=== PATIENT | male | born 1965 | race Caucasian/White ===

== ENCOUNTER 2020-04-10 08:01 | Outpatient (CLI) | payer BC, SELFPAY ==
[2020-04-10 08:18] LABS: Hematocrit 43.4 % (40.0-54.0); Hemoglobin 14.6 g/dL (14.0-18.0); Mean Corpuscular HGB Conc 33.6 g/dL (32.0-36.0); Mean Corpuscular Hemoglobin 30.9 pg (27.0-31.0); Mean Corpuscular Volume 91.8 fL (78.0-102.0); Mean Platelet Volume 11.3 fl (8.7-11.0); Platelet Count Result 229 K/mm3 (150-420); Red Blood Count 4.73 M/mm3 (4.70-6.10); Red Cell Distribution Width 12.2 % (11.6-14.4); White Blood Count 9.2 K/mm3 (4.8-10.8)
[2020-04-10 08:43] LABS: Hemoglobin A1C 6.3 % (<5.7)
[2020-04-10 09:24] LABS: Alanine Aminotransferase 24 U/L (16-63); Albumin Level 3.7 g/dL (3.4-5.0); Alkaline Phosphatase 99 U/L (46-116); Aspartate Amino Transferase 17 U/L (15-37); Bilirubin,Total 0.4 mg/dL (0.00-1.00); Blood Urea Nitrogen 21 mg/dL (7-18); Calcium 9.3 mg/dL (8.5-10.1); Carbon Dioxide 34 mmol/L (21-32); Chloride 99 mmol/L (98-108); Cholesterol 162 mg/dL (0-200); Estimated Glomerular Filt Rate > 60; Glucose 103 mg/dL (70-99); HDL Direct 41 mg/dL (40-60); LDL Cholesterol Calculated 86 mg/dL (<130); Osmolality Calculated 289 mOsm/kg (285-295); Sodium 138 mmol/L (136-145); Total Protein 7.1 g/dL (6.4-8.2); Triglycerides 177 mg/dL (0-150)
== END 2020-04-10 08:02 | disposition home or self-care (01) ==
PROVIDERS: PCP Family Medicine; Visit Provider Family Medicine
DX: I10 Essential (primary) hypertension (principal)
CPT/HCPCS: 36415; 80053; 80061; 83036; 85027

== ENCOUNTER 2020-04-20 09:30 | Outpatient (CLI) | payer BC, SELFPAY ==
--- NOTE | ~2020-04-20 | XR_ITS ---
EXAMINATION: XR shoulder RT min 2V DATE: 04/20/2020 09:54 INDICATION: Right shoulder pain. TECHNIQUE: 4 views of right shoulder were obtained. COMPARISON: Right shoulder radiograph 03/15/2019 FINDINGS: Bone alignment is normal. No fracture. There is moderate osteoarthritis of glenohumeral deana nt and acromioclavicular joint. IMPRESSION: 1. Stable polyarticular osteoarthritis. Reviewed, dictated and finalized at location A.
--- NOTE | ~2020-04-20 | XR_ITS ---
EXAMINATION: XR shoulder LT min 2V DATE: 04/20/2020 09:54 INDICATION: Left shoulder pain. TECHNIQUE: 4 views of left shoulder were obtained. COMPARISON: Left shoulder radiograph 03/15/2019 FINDINGS: Bone alignment is normal. No fracture. There is moderate osteoarthritis of glenohumeral deana nt and acromioclavicular joint. IMPRESSION: 1. Stable polyarticular osteoarthritis. Reviewed, dictated and finalized at location A.
== END 2020-04-20 09:31 | disposition home or self-care (01) ==
PROVIDERS: PCP Nurse Practitioner Family; Visit Provider Nurse Practitioner Family
DX: M25.519 Pain in unspecified shoulder (principal)
CPT/HCPCS: 73030

== ENCOUNTER 2020-09-18 13:10 | Outpatient (CLI) | payer BC, SELFPAY ==
[2020-09-18 23:58] LABS: SARS-CoV-2 RNA PCR Negative
== END 2020-09-18 13:11 | disposition home or self-care (01) ==
LOC: CHSLAB 13:13
PROVIDERS: PCP Nurse Practitioner Family; Visit Provider Nurse Practitioner Family
DX: Z20.828 Contact with and (suspected) exposure to other viral communicable diseases (principal)
CPT/HCPCS: 87635; C9803; U0003

== ENCOUNTER 2021-01-12 08:37 | Outpatient (CLI) | payer BC, SELFPAY ==
--- NOTE | ~2021-01-12 | XR_ITS ---
EXAMINATION: XR chest 2V DATE: 01/12/2021 08:56 INDICATION: Shortness of breath TECHNIQUE: PA and lateral views of the chest were obtained. COMPARISON: Chest radiograph dated 07/29/2011 FINDINGS: The lungs remain clear with no focal airspace opacities, pulmonary edema, pleural effusion or pneumot horax. The cardiomediastinal silhouette is normal. Mild thoracic spondylosis. IMPRESSION: 1. No acute cardiopulmonary disease. Reviewed, dictated and finalized at location A.
== END 2021-01-12 08:38 | disposition home or self-care (01) ==
LOC: CHSIMG 08:39
PROVIDERS: PCP Nurse Practitioner Family; Visit Provider Nurse Practitioner Family
DX: R06.02 Shortness of breath (principal)
CPT/HCPCS: 71046

== ENCOUNTER 2021-08-09 18:33 | Emergency (ER) | payer BC, SELFPAY ==
[2021-08-09 18:48] VITALS: BP 162/64; PULSE 60; RESP 16; TEMP 36.1; O2SAT 96
--- NOTE | 2021-08-09 18:53 | ED.SKABFB ---
HPI - Skin/Abscess/Foreign Bdy General Chief complaint: Skin/Abscess/Foreign Body Stated complaint: infected finger on L hand Source: patient Mode of arrival: ambulatory Limitations: no limitations History of Present Illness HPI narrative: this is a 56-year-old gentleman that presents with a red warm area on his left pinky finger is nontender has good range of motion no known injuries looks like there is a central punctate lesion from possibly an insect bite with surrounding area of erythema and inflammation. There is currently no fever chills no shortness of breath no drainage from the site. Tetanus up to date: yes Location: LUE Severity: mild Related Data Allergies Allergy/AdvReac Type Severity Reaction Status Date / Time No Known Allergies Allergy Verified 01/12/21 07:36 Review of Systems Review of Systems: All systems reviewed & are unremarkable except as noted in HPI and below PMFSH Past Medical History Medical History HTN (hypertension) Hyperlipidemia Left foot pain Obesity, Class III, BMI 40-49.9 (morbid obesity) Osteoarthritis Overweight Prediabetes Primary osteoarthritis of left shoulder Primary osteoarthritis of right shoulder Sleep apnea with use of continuous positive airway pressure (CPAP) Surgical History Surgical History History of left shoulder replacement (~2015) Family History Family History Mother CHF (congestive heart failure) Sibling CHF (congestive heart failure) Social History Social History Smoking status: Never smoker Alcohol intake: never Substance use: never Substance use type: does not use Gender identity (if verbalized by the patient): Male Exam Const: General: no acute distress Orientation/consciousness: patient oriented x3 HENMT: Head: normal to inspection Eyes: Conjunctivae: conjunctivae normal Pupils: Equal, round and reactive pupils present Neck: Neck: normal visual inspection, no lymphadenopathy and no meningeal signs Chest: Chest palpation & inspection: normal inspection of the chest Resp: Effort & Inspection: normal respiratory effort Auscultation: clear to auscultation bilaterally Cardio: Rate: regular rate Rhythm: regular rhythm GI: GI Palp: Yes Soft to palpation Urinary Catheter: Urinary Catheter: patent and draining Back/Spine/Pelvis: Back: no CVA tenderness Skin: Other: Area of erythema on his left 5th finger with warmth and nontender with palpation Neuro: General: patient oriented x3 and moves all extremities Course Course Emergency Course: patient received a g of IM ceftriaxone advised to take Tylenol or Motrin and continue antibiotics by mouth there were sent to his pharmacy if symptoms persist or worsen should follow-up with his primary care physician. Vital Signs Vital signs: Vital Signs Temperature 36.1 C L 08/09/21 18:48 Pulse Rate 60 08/09/21 18:48 Respiratory Rate 16 08/09/21 18:48 Blood Pressure 162/64 H 08/09/21 18:48 Pulse Oximetry 96 08/09/21 18:48 Temperature 36.1 C L 08/09/21 18:48 Pulse Rate 60 08/09/21 18:48 Respiratory Rate 16 08/09/21 18:48 Blood Pressure 162/64 H 08/09/21 18:48 Pulse Oximetry 96 08/09/21 18:48 Critical Care Time Critical Care Time Critical Care Time: No Discharge Plan Discharge Clinical Impression: Cellulitis Patient Disposition: Home, Self-Care Condition: Stable Instructions: Antibiotic Form, Cellulitis (ED) Additional Instructions: Take medicine as prescribed, can use Tylenol or Motrin for pain or inflammation and follow-up primary care physician if symptoms persist or worsen. Prescriptions: New amoxicillin-pot clavulanate [Augmentin] 875-125 mg tablet 1 tablet PO Q12H Qty: 20 RF: 0 No Action albu
[2021-08-09] MEDS: cefTRIAXone 1 GM VIAL IM (19:05)
[2021-08-09] MEDS: LIDOCAINE HCL 1% LOCAL INJ 20 ML VIAL (19:05)
== END 2021-08-09 19:22 | disposition home or self-care (01) ==
PROVIDERS: Emergency Provider Emergency Medicine; PCP Nurse Practitioner Family
DX: L03.90 Cellulitis, unspecified (principal)
CPT/HCPCS: 96372; 99283; J0696

== ENCOUNTER 2021-10-24 17:00 | Outpatient (CLI) | payer OTHER, SELFPAY ==
--- NOTE | ~2021-10-24 | XR_ITS ---
EXAMINATION: XR finger 5th LT min 2V INDICATION: Left fifth finger swelling TECHNIQUE: Four views of the left fifth finger are obtained. COMPARISON: None available FINDINGS: There is diffuse soft tissue swelling of the left fifth finger. No fracture is identified. Moderate osteoarthritis is noted at the proximal interphalangeal joint and mild osteoarthritis is not ed at the distal interphalangeal joint. IMPRESSION: 1. Soft tissue swelling and osteoarthritis of the fifth finger without acute osseous abnormality iden tified. Reviewed, dictated and finalized at location F. IT OPERATIONS PROCESSOR IMPRESSION: 1. Soft tissue swelling and osteoarthritis of the fifth finger without acute os seous abnormality identified.
[2021-10-24 18:13] LABS: Basophils Absolute Auto 0.06 K/mm3 (0.00-0.10); Basophils Percent Auto 0.5 % (0.0-1.0); Eosinophils Absolute Auto 0.28 K/mm3 (0.02-0.50); Eosinophils Percent Auto 2.5 % (1.0-6.0); Hematocrit 44.2 % (40.0-54.0); Hemoglobin 14.6 g/dL (14.0-18.0); Immature Granulocyte Absolute 0.08 K/mm3 (0.00-0.00); Immature Granulocyte Percent A 0.7 % (0.0-0.0); Lymphocytes Absolute Auto 2.62 K/mm3 (1.10-4.50); Lymphocytes Percent Auto 23.7 % (18.0-42.0); Mean Corpuscular Volume 90.9 fL (78.0-102.0); Mean Platelet Volume 10.9 fl (8.7-11.0); Monocytes Absolute Auto 0.95 K/mm3 (0.10-0.90); Monocytes Percent Auto 8.6 % (2.0-11.0); Neutrophils Absolute Auto 7.1 K/mm3 (1.7-7.2); Platelet Count Result 230 K/mm3 (150-420); Red Blood Count 4.86 M/mm3 (4.70-6.10); Red Cell Distribution Width 12.6 % (11.6-14.4); White Blood Count 11.1 K/mm3 (4.8-10.8)
[2021-10-24 18:43] LABS: Alanine Aminotransferase 38 U/L (16-63); Albumin Level 3.9 g/dL (3.4-5.0); Alkaline Phosphatase 91 U/L (46-116); Anion Gap 9 mmol/L (8-16); Aspartate Amino Transferase 21 U/L (15-37); Bilirubin,Total 0.5 mg/dL (0.00-1.00); Blood Urea Nitrogen 23 mg/dL (7-18); Calcium 9.4 mg/dL (8.5-10.1); Carbon Dioxide 30 mmol/L (21-32); Chloride 102 mmol/L (98-108); Cholesterol 191 mg/dL (0-200); Estimated Glomerular Filt Rate > 60; Glucose 96 mg/dL (70-99); HDL Direct 46 mg/dL (40-60); LDL Cholesterol Calculated 113 mg/dL (<130); Osmolality Calculated 295 mOsm/kg (285-295); Potassium 3.8 mmol/L (3.5-5.1); Sodium 141 mmol/L (136-145); Triglycerides 158 mg/dL (0-150); Uric Acid 8.8 mg/dL (3.5-7.2)
== END 2021-10-24 17:01 | disposition home or self-care (01) ==
LOC: CHSLAB 17:04
PROVIDERS: PCP Nurse Practitioner Family; Visit Provider Nurse Practitioner Family
DX: M79.89 Other specified soft tissue disorders (principal); I10 Essential (primary) hypertension; Z00.00 Encounter for general adult medical examination without abnormal findings; E78.5 Hyperlipidemia, unspecified
CPT/HCPCS: 36415; 73140; 80053; 80061; 84550; 85025

== ENCOUNTER 2022-04-23 15:12 | Outpatient (CLI) | payer OTHER, SELFPAY ==
--- NOTE | ~2022-04-23 | XR_ITS ---
XR shoulder RT min 2V 04/23/2022 15:44 Indication: Chronic right shoulder pain Procedure: 4 views right shoulder Comparison: 04/20/2020 Findings: There is moderate polyarticular osteoarthritis. No fracture or traumatic malalignment. No s oft tissue abnormality. No foreign bodies. Impression: 1: Moderate polyarticular osteoarthritis of the right shoulder. Reviewed, dictated and finalized at location A. Impression: 1: Moderate polyarticular osteoarthritis of the right shoulder.
--- NOTE | ~2022-04-23 | XR_ITS ---
XR shoulder LT min 2V 04/23/2022 15:44 Indication: Left shoulder pain for years Procedure: 4 views left shoulder Comparison: 04/20/2020 Findings: There is polyarticular osteoarthritis of the left shoulder, moderate at the glenohumeral ruth int. No fracture or subluxation. No significant soft tissue abnormality. No foreign bodies. Impression: 1: Moderate polyarticular osteoarthritis of the left shoulder. Reviewed, dictated and finalized at location A. Impression: 1: Moderate polyarticular osteoarthritis of the left shoulder.
== END 2022-04-23 15:13 | disposition home or self-care (01) ==
LOC: CHSIMG 15:14
PROVIDERS: PCP Nurse Practitioner Family; Visit Provider Nurse Practitioner Family
DX: M19.012 Primary osteoarthritis, left shoulder (principal); M25.511 Pain in right shoulder
CPT/HCPCS: 73030

== ENCOUNTER 2022-04-29 11:48 | Outpatient (CLI) | payer OTHER, SELFPAY ==
[2022-04-29 11:59] LABS: Basophils Absolute Auto 0.05 K/mm3 (0.00-0.10); Basophils Percent Auto 0.5 % (0.0-1.0); Eosinophils Absolute Auto 0.26 K/mm3 (0.02-0.50); Eosinophils Percent Auto 2.6 % (1.0-6.0); Hematocrit 43.4 % (40.0-54.0); Hemoglobin 14.7 g/dL (14.0-18.0); Immature Granulocyte Absolute 0.11 K/mm3 (0.00-0.00); Immature Granulocyte Percent A 1.1 % (0.0-0.0); Lymphocytes Absolute Auto 2.18 K/mm3 (1.10-4.50); Lymphocytes Percent Auto 22.1 % (18.0-42.0); Mean Corpuscular HGB Conc 33.9 g/dL (32.0-36.0); Mean Corpuscular Hemoglobin 30.2 pg (27.0-31.0); Mean Corpuscular Volume 89.3 fL (78.0-102.0); Mean Platelet Volume 10.9 fl (8.7-11.0); Monocytes Absolute Auto 1.07 K/mm3 (0.10-0.90); Monocytes Percent Auto 10.9 % (2.0-11.0); Neutrophils Absolute Auto 6.2 K/mm3 (1.7-7.2); Neutrophils Percent Auto 62.8 % (50.0-70.0); Platelet Count Result 229 K/mm3 (150-420); Red Blood Count 4.86 M/mm3 (4.70-6.10); Red Cell Distribution Width 12.5 % (11.6-14.4); White Blood Count 9.9 K/mm3 (4.8-10.8)
[2022-04-29 12:39] LABS: Alanine Aminotransferase 47 U/L (16-63); Albumin Level 3.6 g/dL (3.4-5.0); Alkaline Phosphatase 114 U/L (46-116); Anion Gap 6 mmol/L (8-16); Aspartate Amino Transferase 26 U/L (15-37); Bilirubin,Total 0.3 mg/dL (0.00-1.00); Blood Urea Nitrogen 21 mg/dL (7-18); Calcium 9.3 mg/dL (8.5-10.1); Carbon Dioxide 29 mmol/L (21-32); Chloride 104 mmol/L (98-108); Cholesterol 182 mg/dL (0-200); Estimated Glomerular Filt Rate > 60; Glucose 107 mg/dL (70-99); HDL Direct 41 mg/dL (40-60); Hemoglobin A1C 6.3 % (<5.7); LDL Cholesterol Calculated 56 mg/dL (<130); Osmolality Calculated 291 mOsm/kg (285-295); Sodium 139 mmol/L (136-145); Triglycerides 425 mg/dL (0-150)
[2022-04-29 12:42] LABS: LDL Cholesterol Direct 107 mg/dL (0-130)
== END 2022-04-29 11:49 | disposition home or self-care (01) ==
LOC: CHSLAB 11:50
PROVIDERS: PCP Family Medicine; Visit Provider Nurse Practitioner Family
DX: I10 Essential (primary) hypertension (principal); R73.03 Prediabetes; E78.5 Hyperlipidemia, unspecified
CPT/HCPCS: 36415; 80053; 80061; 83036; 83721; 85025

== ENCOUNTER 2022-05-17 09:27 | Outpatient (CLI) | payer OTHER, SELFPAY ==
[2022-05-17 10:13] LABS: SARS-CoV-2 RNA PCR Positive (Negative)
== END 2022-05-17 09:28 | disposition home or self-care (01) ==
LOC: CHSLAB 09:30
PROVIDERS: PCP Family Medicine; Visit Provider Nurse Practitioner Family
DX: U07.1 COVID-19 (principal)
CPT/HCPCS: C9803; U0003; U0005

== ENCOUNTER 2022-05-24 08:53 | Outpatient (CLI) | payer OTHER, SELFPAY ==
[2022-05-24 09:16] LABS: SARS-CoV-2 Ag Negative (Negative)
== END 2022-05-24 08:54 | disposition home or self-care (01) ==
LOC: CHSLAB 08:56
PROVIDERS: PCP Nurse Practitioner Family; Visit Provider Nurse Practitioner Family
DX: Z20.822 Contact with and (suspected) exposure to COVID-19 (principal)
CPT/HCPCS: 87426; C9803

== ENCOUNTER 2022-12-17 11:15 | Outpatient (CLI) | payer OTHER, SELFPAY ==
--- NOTE | ~2022-12-17 | XR_ITS ---
EXAMINATION: XR knee LT 3V DATE: 12/17/2022 11:38 INDICATION: 3 days of anterior left knee pain TECHNIQUE: Anteroposterior, sunrise and crosstable lateral views of the left knee were obtained COMPARISON: None. FINDINGS: Alignment is normal. No fracture. Joint spaces appear normal on nonweightbearing imaging. No joint e ffusion/layering lipohemarthrosis. Soft tissues are unremarkable. IMPRESSION: 1. Negative left knee radiographs. Reviewed, dictated and finalized at location A. T OF SALE ASSOCIATE
== END 2022-12-17 11:16 | disposition home or self-care (01) ==
LOC: CHSIMG 11:17
PROVIDERS: PCP Nurse Practitioner Family; Visit Provider Nurse Practitioner Family
DX: M25.562 Pain in left knee (principal)
CPT/HCPCS: 73562

== ENCOUNTER 2022-12-24 15:58 | Outpatient (RCR) | payer OTHER, SELFPAY ==
--- NOTE | 2022-12-24 16:49 | PTOPEVAL1 ---
Assessment and note entered by Zeus King Evaluation Information Assessment Status Evaluation Diagnosis left knee pain Onset 12/15/22 Subjective Information Pt. reports that he experienced initial knee pain around 12/15/22. He recalls no specific incident except for some pain getting off the couch. He reports that he did recieve a cortisone injection 1 week ago and pain has reduced. He reports that he avoids any stairs, squatting and kneeling, therefore pain has been minimal. He reports when pain is present is located on the inside of the left knee. He reports that pain is most notable when he is upright. He was using a cane but is no longer using an AD. He states that his goal is to improve his knee stability and reduce pain. Reported Pain Level Pain Score 0: Self Report Assessment PT Clinical Summary Pt. is a 57 year old male who enters the clinic with left knee pain. He currently presents with impaired strength, impaired ROM, pain and impaired gait. Continued skilled PT is indicated in order to improve these areas to allow the pt. to achieve improved comfort with all standing activities. Plan of Care Interventions Electrical Stimulation,Gait Training,Hot Pack/Cold Pack,Manual Therapy,Neuro Re-education,Patient/ Caregiver Educati,Therapeutic Activities, Therapeutic Exercise PT Services Indicated Yes Treatment Frequency and 2x/week x 6 visits Duration These treatments will address the objective and functional deficits as defined above. The patient will be advanced safely and appropriately in order for the patient to progress towards his/her prior level of function. Additional exercises will be introduced and as well as a comprehensive home exercise program upon discharge, if needed, ?to ensure carryover of functional gains achieved in the clinic. This treatment plan has been reviewed and agreement upon by the patient.
--- NOTE | 2023-01-10 15:43 | PTOPDC ---
Assessment and note entered by JT File, PT Evaluation Information Assessment Status Discharge Diagnosis left knee pain Onset 12/15/22 Subjective Information patient reports getting up from chair or truck causes severe increased pain. he reports he is still working and is not able to use his cane at work. he reports his pain has been severe all week . Reported Pain Level Pain Score 9: Self Report Assessment PT Clinical Summary mr. aguirre presents to skilled PT for his 6th skilled therapy visit. as of this date, he presents with worse rom, increased pain, and positive medial mcmurrays/medial jt line pain. he would beenfit from an MRI to rule out meniscus tear/other soft tissue damage. he will DC skilled PT this date and plan to return to MD for follow up for MRI and potential surgery. Plan of Care PT Services Indicated Yes
== END 2023-01-10 16:06 | disposition home or self-care (01) ==
LOC: CHSPT 15:58
PROVIDERS: PCP Nurse Practitioner Family; Visit Provider Nurse Practitioner Family
DX: M25.562 Pain in left knee (principal)
CPT/HCPCS: 97014; 97110; 97161; G0283

== ENCOUNTER 2023-01-17 08:35 | Outpatient (CLI) | payer OTHER, SELFPAY ==
[2023-01-17 08:50] LABS: Hematocrit 39.7 % (40.0-54.0); Mean Corpuscular HGB Conc 32.7 g/dL (32.0-36.0); Mean Corpuscular Hemoglobin 29.4 pg (27.0-31.0); Mean Corpuscular Volume 89.8 fL (78.0-102.0); Mean Platelet Volume 10.5 fl (8.7-11.0); Platelet Count Result 219 K/mm3 (150-420); Red Blood Count 4.42 M/mm3 (4.70-6.10); Red Cell Distribution Width 13.7 % (11.6-14.4); White Blood Count 7.7 K/mm3 (4.8-10.8)
[2023-01-17 09:19] LABS: Alanine Aminotransferase 31 U/L (16-63); Albumin Level 3.8 g/dL (3.4-5.0); Alkaline Phosphatase 96 U/L (46-116); Anion Gap 7 mmol/L (8-16); Aspartate Amino Transferase 18 U/L (15-37); Bilirubin,Total 0.7 mg/dL (0.00-1.00); Blood Urea Nitrogen 22 mg/dL (7-18); Calcium 9.6 mg/dL (8.5-10.1); Carbon Dioxide 34 mmol/L (21-32); Chloride 102 mmol/L (98-108); Cholesterol 173 mg/dL (0-200); Estimated Glomerular Filt Rate > 60; Glucose 113 mg/dL (70-99); HDL Direct 41 mg/dL (40-60); LDL Cholesterol Calculated 95 mg/dL (<130); Osmolality Calculated 300 mOsm/kg (285-295); Potassium 4.3 mmol/L (3.5-5.1); Sodium 143 mmol/L (136-145); Total Protein 7.3 g/dL (6.4-8.2); Triglycerides 187 mg/dL (0-150); Uric Acid 8.7 mg/dL (3.5-7.2)
[2023-01-17 17:08] LABS: Hemoglobin A1C 6.4 % (<5.7)
== END 2023-01-17 08:36 | disposition home or self-care (01) ==
LOC: CHSLAB 08:38
PROVIDERS: PCP Nurse Practitioner Family; Visit Provider Nurse Practitioner Family
DX: E66.3 Overweight (principal); E66.01 Morbid (severe) obesity due to excess calories
CPT/HCPCS: 36415; 80053; 80061; 83036; 84550; 85027

== ENCOUNTER 2023-02-14 08:09 | Outpatient (CLI) | payer OTHER, SELFPAY ==
--- NOTE | 2023-03-06 15:31 | WPDSLEEPSTUD ---
Sleep Study Date of Study: 02/14/23 Ordering Provider: Marcy Hay APRN Interpreting Physician: Oma Clay MD Sleep Study Type: Split Polysomnogram Height: 1.75 m Weight: 142.882 kg Body Mass Index: 46.5 Neck Circumference (inches): 21 [place]: 6 Reason for Sleep Study Obstructive sleep apnea, difficulty tolerating CPAP. He is using CPAP 12 cm now. ? Sleep History Michele Le is a 57-year-old male with history of hypertension, hyperlipidemia, prediabetes, and obstructive sleep apnea who presents for an in-lab split study due to difficulty tolerating CPAP. He occasionally awakens from sleep short of breath. He does not wake at night with heartburn, belching or cough.? He occasionally snores and snores loudly enough that others complain. He rarely has trouble sleeping when he has a cold. He rarely wakes up gasping for breath during the night. He rarely has breathing problems at night. He never sweats excessively at night. He rarely notices his heart pounding or beating irregularly during the night. He never falls asleep during the day. He rarely falls asleep involuntarily and rarely falls asleep while driving. He never experiences loss of muscle tone with strong emotion. He never feels paralyzed on waking or falling asleep. He never experiences vivid dreams upon waking or falling asleep. He does not feel afraid of going to sleep. He does not have nightmares. He rarely recalls his dreams. He occasionally has thoughts racing through his mind. He rarely feels sad or depressed. He rarely feels anxiety or worry about things. He does not notice parts of his body jerk. He occasionally kicks during the night. He never feels crawling or aching feelings in his legs and never feels leg pain at night. He rarely grinds his teeth during sleep and never has morning jaw pain. He rarely feels bothered by pain during the day and is rarely awakened by pain during the night. He does not wake up feeling stiff, sore, or achy in the morning. Normal bedtime is around 8:30 pm on the weekdays and 9:30 pm on the weekends, usually falling asleep within 20 minutes. He typically gets about 6 or 7 hours of sleep per night. His wake up time is around 4 am on the weekdays and 6 am on the weekends. He typically wakes up around two times per night, awake for about 10 minutes or so and uses the restroom. He watches TV before falling asleep. He takes naps in the afternoon or evening and feels refreshed after a short 10 to 15 minute nap. Habits:? Never smoked tobacco. Caffeine use is 16 oz per day. No alcohol or recreational substances. ? PMFSH Past Medical History Medical History HTN (hypertension) Hyperlipidemia Left foot pain Obesity, Class III, BMI 40-49.9 (morbid obesity) Osteoarthritis Overweight Prediabetes Primary osteoarthritis of left shoulder Primary osteoarthritis of right shoulder Sleep apnea with use of continuous positive airway pressure (CPAP) Surgical History Surgical History History of left shoulder replacement (~2015) Family History Family History Mother CHF (congestive heart failure) Heart disease Sibling CHF (congestive heart failure) Grandparent Heart disease Social History Social History Smoking status: Never smoker Alcohol intake: never Substance use: never Substance use type: does not use Living arrangements: with family Occupation/Education: occupation 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
[2023-03-06 15:58] VITALS: BMI 46.5
== END 2023-02-15 08:20 | disposition home or self-care (01) ==
LOC: ANHCSM 08:09
PROVIDERS: PCP Nurse Practitioner Family; Visit Provider Nurse Practitioner Family
DX: G47.30 Sleep apnea, unspecified (principal); G47.33 Obstructive sleep apnea (adult) (pediatric)
CPT/HCPCS: 95811

== ENCOUNTER 2023-06-21 09:15 | Outpatient (CLI) | payer OTHER, SELFPAY ==
[2023-06-21 09:47] LABS: Basophils Absolute Auto 0.05 K/mm3 (0.00-0.10); Basophils Percent Auto 0.8 % (0.0-1.0); Eosinophils Absolute Auto 0.17 K/mm3 (0.02-0.50); Eosinophils Percent Auto 2.9 % (1.0-6.0); Hematocrit 44.4 % (40.0-54.0); Immature Granulocyte Absolute 0.04 K/mm3 (0.00-0.00); Immature Granulocyte Percent A 0.7 % (0.0-0.0); Lymphocytes Absolute Auto 1.99 K/mm3 (1.10-4.50); Lymphocytes Percent Auto 33.4 % (18.0-42.0); Mean Corpuscular HGB Conc 33.8 g/dL (32.0-36.0); Mean Corpuscular Volume 91.7 fL (78.0-102.0); Mean Platelet Volume 11.2 fl (8.7-11.0); Monocytes Absolute Auto 0.67 K/mm3 (0.10-0.90); Monocytes Percent Auto 11.3 % (2.0-11.0); Neutrophils Percent Auto 50.9 % (50.0-70.0); Platelet Count Result 180 K/mm3 (150-420); Red Blood Count 4.84 M/mm3 (4.70-6.10); Red Cell Distribution Width 12.4 % (11.6-14.4)
[2023-06-21 10:32] LABS: Hemoglobin A1C 6.3 % (<5.7)
[2023-06-21 10:57] LABS: Alanine Aminotransferase 38 U/L (16-63); Albumin Level 4.1 g/dL (3.4-5.0); Alkaline Phosphatase 90 U/L (46-116); Anion Gap 6 mmol/L (8-16); Aspartate Amino Transferase 21 U/L (15-37); Bilirubin,Total 0.7 mg/dL (0.00-1.00); Blood Urea Nitrogen 22 mg/dL (7-18); Calcium 9.5 mg/dL (8.5-10.1); Carbon Dioxide 31 mmol/L (21-32); Chloride 104 mmol/L (98-108); Cholesterol 188 mg/dL (0-200); Estimated Glomerular Filt Rate > 60; Glucose 100 mg/dL (70-99); HDL Direct 42 mg/dL (40-60); LDL Cholesterol Calculated 108 mg/dL (<130); Osmolality Calculated 295 mOsm/kg (285-295); Potassium 4.2 mmol/L (3.5-5.1); Sodium 141 mmol/L (136-145); Total Protein 7.3 g/dL (6.4-8.2); Triglycerides 189 mg/dL (0-150); Uric Acid 9.3 mg/dL (3.5-7.2)
== END 2023-06-21 09:16 | disposition home or self-care (01) ==
LOC: CHSLAB 09:16
PROVIDERS: PCP Nurse Practitioner Family; Visit Provider Nurse Practitioner Family
DX: E11.9 Type 2 diabetes mellitus without complications (principal); E78.5 Hyperlipidemia, unspecified; I10 Essential (primary) hypertension; R79.81 Abnormal blood-gas level
CPT/HCPCS: 36415; 80053; 80061; 83036; 84550; 85025

== ENCOUNTER 2023-08-16 13:45 | Emergency (ER) | payer OTHER, SELFPAY ==
--- NOTE | ~2023-08-16 | XR_ITS ---
EXAMINATION: XR chest 1V portable DATE: 08/16/2023 14:18 INDICATION: Shortness of breath TECHNIQUE: frontal view of the chest was obtained. COMPARISON: Chest radiograph dated 01/12/2021 FINDINGS: The lungs remain clear with no focal airspace opacities, pulmonary edema, pleural effusion or pneumot horax. The cardiomediastinal silhouette is normal. Moderate bilateral acromioclavicular osteoarthriti s. IMPRESSION: 1. No acute cardiopulmonary disease. Reviewed, dictated and finalized at location A.
[2023-08-16 13:45] VITALS: BP 195/81; PULSE 80; RESP 18; TEMP 36.3; O2SAT 99
[2023-08-16 14:00] VITALS: PULSE 88; RESP 20; O2SAT 99
[2023-08-16] MEDS: IPRATROPIUM 0.5 MG/ALBUTEROL SULFATE 2.5 MG AMPUL.NEB 3 ML INHALATION (14:04)
[2023-08-16 14:12] LABS: Basophils Absolute Auto 0.04 K/mm3 (0.00-0.10); Basophils Percent Auto 0.6 % (0.0-1.0); Eosinophils Absolute Auto 0.19 K/mm3 (0.02-0.50); Eosinophils Percent Auto 2.9 % (1.0-6.0); Hematocrit 45.5 % (40.0-54.0); Hemoglobin 15.1 g/dL (14.0-18.0); Immature Granulocyte Absolute 0.02 K/mm3 (0.00-0.00); Immature Granulocyte Percent A 0.3 % (0.0-0.0); Lymphocytes Absolute Auto 2.19 K/mm3 (1.10-4.50); Lymphocytes Percent Auto 33.5 % (18.0-42.0); Mean Corpuscular HGB Conc 33.2 g/dL (32.0-36.0); Mean Corpuscular Hemoglobin 30.5 pg (27.0-31.0); Mean Corpuscular Volume 91.9 fL (78.0-102.0); Mean Platelet Volume 11.2 fl (8.7-11.0); Monocytes Absolute Auto 0.89 K/mm3 (0.10-0.90); Monocytes Percent Auto 13.6 % (2.0-11.0); Neutrophils Absolute Auto 3.2 K/mm3 (1.7-7.2); Neutrophils Percent Auto 49.1 % (50.0-70.0); Platelet Count Result 192 K/mm3 (150-420); Red Blood Count 4.95 M/mm3 (4.70-6.10); Red Cell Distribution Width 12.1 % (11.6-14.4); White Blood Count 6.5 K/mm3 (4.8-10.8)
[2023-08-16 14:22] VITALS: PULSE 94; RESP 20; O2SAT 99
[2023-08-16 14:28] LABS: Alanine Aminotransferase 48 U/L (16-63); Albumin Level 3.5 g/dL (3.4-5.0); Alkaline Phosphatase 100 U/L (46-116); Anion Gap 8 mmol/L (8-16); Aspartate Amino Transferase 30 U/L (15-37); Bilirubin,Total 0.4 mg/dL (0.00-1.00); Blood Urea Nitrogen 21 mg/dL (7-18); Calcium 9.3 mg/dL (8.5-10.1); Carbon Dioxide 32 mmol/L (21-32); Chloride 102 mmol/L (98-108); Estimated CRCL calculation 101 ml/min; Estimated Glomerular Filt Rate > 60; Glucose 111 mg/dL (70-99); Osmolality Calculated 298 mOsm/kg (285-295); Potassium 3.9 mmol/L (3.5-5.1); Sodium 142 mmol/L (136-145)
--- NOTE | 2023-08-16 14:35 | ED.SOB ---
HPI - SOB/Dyspnea General Chief Complaint: Shortness of Breath/Dyspnea Stated Complaint: shortness of breath Time Seen by Provider: 08/16/23 13:51 Source: patient Mode of arrival: ambulatory Limitations: no limitations History of Present Illness HPI Narrative: this is a 58-year-old male with history of obstructive sleep apnea feels like he is not getting enough air when he is using his CPAP at home during the night. Otherwise he states that he has been mildly short of breath with no cough or congestion no audible wheezing no chest pain no fever chills. MD elicited complaint: shortness of breath Pertinent past history: other ( obstructive sleep apnea) Onset (ago): week(s) Severity: mild Exacerbating factors: lying flat and other ( while using his CPAP) Relieving factors: nothing Related Data Home Medications Medication Instructions Recorded Confirmed omega 1-nvn-sat-fish oil 1,000 mg 1 cap PO BID 07/11/23 07/17/23 (120 mg-180 mg) capsule (Fish Oil) Allergies Allergy/AdvReac Type Severity Reaction Status Date / Time No Known Allergies Allergy Verified 07/31/23 07:51 Review of Systems Review of Systems: All systems reviewed & are unremarkable except as noted in HPI and below PMFSH Past Medical History Medical History HTN (hypertension) Hyperlipidemia Left foot pain Obesity, Class III, BMI 40-49.9 (morbid obesity) Osteoarthritis Overweight Prediabetes Primary osteoarthritis of left shoulder Primary osteoarthritis of right shoulder Sleep apnea with use of continuous positive airway pressure (CPAP) Surgical History Surgical History History of left shoulder replacement (~2015) Family History Family History Mother CHF (congestive heart failure) Heart disease Sibling CHF (congestive heart failure) Grandparent Heart disease Social History Social History Smoking status: Never smoker Alcohol intake: never Substance use: never Substance use type: does not use Living arrangements: with family Occupation/Education: occupation 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 Gender identity (if verbalized by the patient): Male Sexual Orientation (if Verbalized by the Patient): Straight or Heterosexual Exam Const: General: healthy appearing Nutritional Appearance: well nourished Orientation/consciousness: patient oriented x3 Limitations: no limitations HENMT: Head: normal to inspection Eyes: Conjunctivae: conjunctivae normal Chest: Chest palpation & inspection: normal inspection of the chest Resp: Effort & Inspection: normal respiratory effort Auscultation: clear to auscultation bilaterally Cardio: Rate: regular rate Rhythm: regular rhythm GI: GI Palp: Yes Soft to palpation Auscultation: normal bowel sounds Neuro: General: patient oriented x3 and moves all extremities Extrem: General: no pedal edema Psych: Mental Status: mental status grossly normal Affect: normal affect Course Course Emergency Course: Patient had x-ray performed which shows no acute abnormality, his blood work performed with no significant abnormalities, his blood pressure is elevated 195/81 COVID performed as well as RSV and influenza negative. Vital Signs Vital signs: Vital Signs Temperature 36.3 C L 08/16/23 13:45 Pulse Rate 80 08/16/23 13:45 Respiratory Rate 18 08/16/23 13:45 Blood Pressure 195/81 H 08/16/23 13:45 Pulse Oximetry 99 08/16/23 13:45 Oxygen Delivery Room Air 08/16/23 13:45 Temperature 36.3 C L 08/16/23 13:45 Pulse Rate 94 08/16/23 14:22 Respiratory Rate 20 08/16/23 14:22 Blood Pressure 195/81 H 08/16/23 13:45 Pulse Oximetry 99 08/16/23 14:22 Oxygen Delivery Room Air 08/16/23 13:45 MDM - SOB/
[2023-08-16 14:48] LABS: Influenza A QL RT-PCR Negative (Negative); Influenza B QL RT-PCR Negative (Negative); RSV RNA, RT-PCR Negative (Negative); SARS-CoV-2 RNA PCR Negative (Negative)
[2023-08-16 14:59] VITALS: BP 153/80; PULSE 80; O2SAT 97
== END 2023-08-16 15:06 | disposition home or self-care (01) ==
PROVIDERS: Emergency Provider Emergency Medicine; PCP Family Medicine
DX: G47.33 Obstructive sleep apnea (adult) (pediatric) (principal); I10 Essential (primary) hypertension; E78.5 Hyperlipidemia, unspecified; R73.03 Prediabetes; E66.01 Morbid (severe) obesity due to excess calories; Z68.42 Body mass index [BMI] 45.0-49.9, adult; Z79.51 Long term (current) use of inhaled steroids; Z79.84 Long term (current) use of oral hypoglycemic drugs; Z20.822 Contact with and (suspected) exposure to COVID-19
CPT/HCPCS: 36415; 71045; 80053; 85025; 87637; 94640; 99283

== ENCOUNTER 2023-10-18 09:03 | Outpatient (CLI) | payer OTHER, SELFPAY ==
[2023-10-18 09:48] LABS: Triglycerides 155 mg/dL (0-150); Uric Acid 8.8 mg/dL (3.5-7.2)
== END 2023-10-18 09:04 | disposition home or self-care (01) ==
LOC: CHSLAB 09:05
PROVIDERS: PCP Family Medicine; Visit Provider Nurse Practitioner Family
DX: E78.5 Hyperlipidemia, unspecified (principal); E79.0 Hyperuricemia without signs of inflammatory arthritis and tophaceous disease; E66.01 Morbid (severe) obesity due to excess calories; R73.03 Prediabetes
CPT/HCPCS: 36415; 83036; 84478; 84550

== ENCOUNTER 2024-02-13 07:52 | Outpatient (CLI) | payer OTHER, SELFPAY ==
[2024-02-13 09:05] LABS: Alanine Aminotransferase 58 U/L (16-63); Albumin Level 3.8 g/dL (3.4-5.0); Alkaline Phosphatase 86 U/L (46-116); Anion Gap 9 mmol/L (4-12); Aspartate Amino Transferase 36 U/L (15-37); Bilirubin,Total 0.5 mg/dL (0.00-1.00); Blood Urea Nitrogen 31 mg/dL (7-18); Calcium 9.4 mg/dL (8.5-10.1); Carbon Dioxide 31 mmol/L (21-32); Chloride 102 mmol/L (98-108); Estimated Glomerular Filt Rate > 60; Glucose 117 mg/dL (70-99); Osmolality Calculated 301 mOsm/kg (285-295); Potassium 4.3 mmol/L (3.5-5.1); Sodium 142 mmol/L (136-145); Total Protein 6.8 g/dL (6.4-8.2); Uric Acid 6.4 mg/dL (3.5-7.2)
[2024-02-13 09:08] LABS: Hemoglobin A1C 5.9 % (<5.7)
[2024-02-16 14:25] LABS: Cholesterol 174 mg/dL (0-200); HDL Direct 41 mg/dL (40-60); LDL Cholesterol Calculated 90 mg/dL (<130); Triglycerides 214 mg/dL (0-150)
== END 2024-02-13 07:53 | disposition home or self-care (01) ==
LOC: CHSLAB 07:55
PROVIDERS: PCP Nurse Practitioner Family; Visit Provider Nurse Practitioner Family
DX: Z00.00 Encounter for general adult medical examination without abnormal findings (principal); E79.0 Hyperuricemia without signs of inflammatory arthritis and tophaceous disease; E11.9 Type 2 diabetes mellitus without complications
CPT/HCPCS: 36415; 80053; 80061; 83036; 84550

== ENCOUNTER 2024-06-30 08:14 | Outpatient (CLI) | payer OTHER, SELFPAY ==
[2024-06-30 08:59] LABS: SARS-CoV-2 RNA PCR Positive (Negative)
== END 2024-06-30 08:15 | disposition home or self-care (01) ==
LOC: CHSLAB 08:15
PROVIDERS: PCP Nurse Practitioner Family; Visit Provider Nurse Practitioner Family
DX: U07.1 COVID-19 (principal); R05.1 Acute cough
CPT/HCPCS: 87635

== ENCOUNTER 2025-02-12 08:12 | Outpatient (CLI) | payer BC, SELFPAY ==
--- NOTE | ~2025-02-12 | XR_ITS ---
[id number] 02/12/2025 08:25 Indication: Left knee pain Procedure: 2 views left knee Comparison: No prior studies for comparison. Findings: There is mild hypertension moderate osteoarthritis of the medial compartment of the left kn ee. No fracture or traumatic malalignment. No significant joint effusion. No foreign bodies. Impression: 1: Mild-moderate osteoarthritis of the medial compartment of the left knee. Reviewed, dictated and finalized at location A. Impression: 1: Mild-moderate osteoarthritis of the medial compartment of the left knee.
== END 2025-02-12 08:13 | disposition home or self-care (01) ==
LOC: CHSIMG 08:14
PROVIDERS: PCP Nurse Practitioner Family; Visit Provider Nurse Practitioner Family
DX: M25.562 Pain in left knee (principal); M17.12 Unilateral primary osteoarthritis, left knee
CPT/HCPCS: 73560

== ENCOUNTER 2025-02-19 08:38 | Outpatient (CLI) | payer BC, SELFPAY ==
[2025-02-19 08:52] LABS: Basophils Absolute Auto 0.05 K/mm3 (0.00-0.10); Basophils Percent Auto 0.8 % (0.0-1.0); Eosinophils Absolute Auto 0.17 K/mm3 (0.02-0.50); Eosinophils Percent Auto 2.7 % (1.0-6.0); Hematocrit 44.8 % (40.0-54.0); Hemoglobin 14.7 g/dL (14.0-18.0); Immature Granulocyte Absolute 0.08 K/mm3 (0.00-0.00); Immature Granulocyte Percent A 1.3 % (0.0-0.0); Lymphocytes Absolute Auto 2.11 K/mm3 (1.10-4.50); Mean Corpuscular HGB Conc 32.8 g/dL (32-36); Mean Corpuscular Hemoglobin 30.1 pg (27.0-31.0); Mean Corpuscular Volume 91.8 fL (78.0-102.0); Mean Platelet Volume 10.7 fl (8.7-11.0); Neutrophils Absolute Auto 3.28 K/mm3 (1.70-7.20); Neutrophils Percent Auto 51.2 % (50.0-70.0); Platelet Count Result 193 K/mm3 (150-420); Red Blood Count 4.88 M/mm3 (4.70-6.10); Red Cell Distribution Width 12.4 % (11.6-14.4); White Blood Count 6.4 K/mm3 (4.8-10.8)
[2025-02-19 09:11] LABS: Hemoglobin A1C 6.7 % (<5.7)
[2025-02-19 09:20] LABS: Alanine Aminotransferase 55 U/L (6-50); Albumin Level 4.2 g/dL (3.5-5.1); Alkaline Phosphatase 105 U/L (38-126); Anion Gap 5 mmol/L (4-12); Aspartate Amino Transferase 40 U/L (17-59); Bilirubin,Total 0.7 mg/dL (0.2-1.3); Blood Urea Nitrogen 23 mg/dL (9-20); Calcium 9.4 mg/dL (8.4-10.2); Carbon Dioxide 30 mmol/L (22-30); Chloride 103 mmol/L (98-107); Cholesterol 164 mg/dL (0-200); Estimated Glomerular Filt Rate > 60; Glucose 109 mg/dL (65-110); HDL Direct 43 mg/dL; LDL Cholesterol Calculated 91 mg/dL (<130); Osmolality Calculated 290 mOsm/kg (285-295); Potassium 4.4 mmol/L (3.4-5.0); Sodium 138 mmol/L (137-145); Total Protein 6.6 g/dL (6.3-8.2); Triglycerides 151 mg/dL (<150); Uric Acid 6.1 mg/dL (3.5-8.5)
[2025-02-19 10:03] LABS: Thyroid Stimulating Hormone Reflex 0.48 u/IU/mL (0.36-3.74)
== END 2025-02-19 08:39 | disposition home or self-care (01) ==
LOC: CHSLAB 08:39
PROVIDERS: PCP Nurse Practitioner Family; Visit Provider Nurse Practitioner Family
DX: Z00.00 Encounter for general adult medical examination without abnormal findings (principal)
CPT/HCPCS: 36415; 80053; 80061; 83036; 84443; 84550; 85025

== ENCOUNTER 2025-06-11 08:15 | Outpatient (CLI) | payer BC, SELFPAY ==
--- OUTSIDE RECORDS SUMMARY | 2025-06-11 08:18 | XMS_ITS | Patient Health Record ---
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 Furnace And Wash Equipment Operator Name Role Phone AMRITA Gupta Unavailable [phone] Lior Pearl Unavailable Unavailable Reason For Referral No Information Medications Medication SIG (Take, Route, Frequency, Duration) Notes Start Date End Date Status atorvastatin 40 MG Oral Tablet ORAL atorvastatin 40 MG Oral TabletOriginal Medicationatorvastatin 40 MG Oral Tablet *Reorder from [employer] for eRx and Interaction Alerts* 09/20/2019 Active 24 HR metoprolol succinate 200 MG Extended Release Oral Tablet ORAL 24 HR metoprolol succinate 200 MG Extended Release Oral TabletOriginal [id number] HR metoprolol succinate 200 MG Extended Release Oral Tablet *Reorder from [employer] for eRx and Interaction Alerts* 09/20/2019 Active Plan Of Treatment No Information Insurance Providers Payer Name Payer Address Payer Phone Subscriber Number Group Number Insured Name Patient Relationship to Insured Coverage Start Date Coverage End Date [facility] ([facility] ATTN CLAIMS [address] [place] [address] [id number] TOMA GONSALVES Self - patient is the insured
[2025-06-11 09:58] LABS: Alanine Aminotransferase 53 U/L (6-50); Albumin Level 4.7 g/dL (3.5-5.1); Alkaline Phosphatase 81 U/L (38-126); Anion Gap 9 mmol/L (4-12); Aspartate Amino Transferase 46 U/L (17-59); Bilirubin,Total 0.8 mg/dL (0.2-1.3); Blood Urea Nitrogen 24 mg/dL (9-20); Calcium 9.7 mg/dL (8.4-10.2); Carbon Dioxide 30 mmol/L (22-30); Chloride 101 mmol/L (98-107); Estimated Glomerular Filt Rate > 60; Glucose 107 mg/dL (65-110); Osmolality Calculated 294 mOsm/kg (285-295); Potassium 4.7 mmol/L (3.4-5.0); Sodium 140 mmol/L (137-145); Total Protein 7.1 g/dL (6.3-8.2)
[2025-06-11 10:01] LABS: MALB Creatinine Ratio 20.6 mg/g (0-30)
[2025-06-11 11:16] LABS: Hemoglobin A1C 6.1 % (<5.7)
== END 2025-06-11 08:16 | disposition home or self-care (01) ==
LOC: CHSLAB 08:16
PROVIDERS: PCP Nurse Practitioner Family; Visit Provider Nurse Practitioner Family
DX: E11.9 Type 2 diabetes mellitus without complications (principal)
CPT/HCPCS: 36415; 80053; 82043; 83036